=== PATIENT | female | born 1965 | race Caucasian/White ===

== ENCOUNTER 2023-12-15 07:14 | Emergency (ER) | payer BC ==
--- NOTE | 2023-12-15 07:49 | ED Physician Documentation ---
PD HPI NVD - Stated complaint Stated Complaint: N/V/D - Chief complaint Chief Complaint: Abd Pain - History obtained from History obtained from: Patient, Family - History of Present Illness Timing - onset: Yesterday Timing - duration: Days (2) Timing - details: Gradual onset, Still present Associated symptoms: Dizzy, Near syncope / syncope, Other (diarrhea and vomiting.). 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 She has developed nausea vomiting and diarrhea following contact with a granddaughter who was sick with similar at the beginning of the week. The patient has been ill for 2 days and has developed signs and symptoms of dehydration. She indicates that she dehydrates easily. She is here for treatment. Denies any pain, denies any blood in the in the vomit or diarrhea and she denies any fever associated with this. Review of Systems Constitutional: reports: Chills. denies: Fever Ears: denies: Ear pain Nose: denies: Congestion Throat: denies: Sore throat Cardiac: denies: Chest pain / pressure Respiratory: denies: Dyspnea, Cough GI: reports: Nausea, Vomiting, Diarrhea. denies: Abdominal Pain : denies: Dysuria, Frequency Skin: denies: Rash Musculoskeletal: denies: Neck pain, Back pain, Extremity pain Neurologic: denies: Generalized weakness, Focal weakness, Numbness PD PAST MEDICAL HISTORY - Past Medical History Past Medical History: No - Past Surgical History Past Surgical History: Yes Cardiovascular: Other (tumor removal RLL lung October 2023) - Present Medications Home Medications: Ambulatory Orders Medication Instructions Recorded Confirmed Ondansetron Odt [Zofran] 4 mg TL Q6H PRN #10 tablet 12/15/23 - Allergies Allergies/Adverse Reactions: Allergies Allergy/AdvReac Type Severity Reaction Status Date / Time No Known Drug Allergies Allergy Verified 12/15/23 07:20 - Social History Does the pt smoke?: No Smoking Status: Never smoker Does the pt drink ETOH?: No Does the pt have substance abuse?: No - Immunizations Immunizations are current?: Yes - POLST Patient has POLST: No PD ED PE NORMAL - Vitals Vital signs reviewed: Yes (hypsertensive ) - General General: Alert and oriented X 3, No acute distress, Well developed/nourished - HEENT HEENT: Atraumatic, PERRL, EOMI, Other (dry mucous membranes ) - Neck Neck: Supple, no meningeal sign, No bony TTP - Cardiac Cardiac: RRR, No murmur - Respiratory Respiratory: No respiratory distress, Clear bilaterally - Abdomen Abdomen: Normal bowel sounds, Soft, Non tender, Non distended, No organomegaly - Back Back: No CVA TTP, No spinal TTP - Derm Derm: Normal color, Warm and dry, No rash - Extremities Extremities: No deformity, No edema - Neuro Neuro: Alert and oriented X 3, 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, No motor deficit, No sensory deficit, Normal speech Eye Opening: Spontaneous Motor: Obeys Commands Verbal: Oriented GCS Score: 15 - Psych Psych: Normal mood, Normal affect Results - Vitals Vitals: Vital Signs - 24 hr 12/15/23 12/15/23 12/15/23 07:21 09:23 11:37 Temperature 36.5 C 37.0 C 36.8 C Heart Rate 92 82 92 Respiratory 16 18 18 Rate Blood Pressure 130/85 H 145/81 H 145/92 H O2 Saturation 99 100 98 12/15/23 12:00 Temperature Heart Rate 78 Respiratory 18 Rate Blood Pressure 145/92 H O2 Saturation 98 Oxygen O2 Source Room air - Labs Labs: Laboratory Tests 12/15/23 12/15/23 07:36 07:36 WBC 10.4 RBC 4.68 Hgb 14.9 Hct 44.2 MCV 94.4 MCH 31.8 H MCHC 33.7 RDW 12.3 Plt Count 202 MPV 10.4 Neut # (Auto) 9.5 H Lymph # (Auto) 0.5 L [place] # (Auto) 0.3 Eos # (Auto) 0.1 Baso # (Auto) 0.0 Absolute Nucleated RBC 0.00 Nucleated RBC % 0.0 Sodium 136 Potassium 3.7 Chloride 101 Carbon Dioxide 29 Anion Gap 6.0 BUN 17 Creatinine 0.7 Estimated GFR (MDRD) 87 L Glucose 140 H Calcium 9.8 Total Bilirubin 0.7 AST 18 ALT 20 Alkaline Phosphatase 114 Total Protein 7.5 Albumin 4.7 Globulin 2.8 Albumin/Globulin Ratio 1.7 Lipase 16 PD Medical Decision Making - ED course Complexity details: re-evaluated patient, considered differential, d/w patient Reviewed Lab Results: We reviewed a complete blood count showing a normal white blood cell count normal hemoglobin hematocrit and platelets chemistries were with normal electrolytes normal kidney and liver function these laboratories do not contribute to any specific diagnosis and are reassuring for a benign process. ED course: Stephane Wynne tends to dehydrate easily and she presented to the emergency department today after a bout of gastroenteritis provided hydration and antiemetic with improvement. Departure - Departure Disposition: Home, Self Care Clinical Impression: Dehydration, Gastroenteritis Condition: Stable Instructions: ED Dehydration, ED Food Poison Or Gastroenteritis Follow-Up: Your, doctor [Other] Prescriptions: Ondansetron Odt [Zofran] 4 mg TL Q6H PRN #10 tablet PRN Reason: Nausea / Vomiting Comments: Stephane, today it looks like you were significantly dehydrated and we have provided some IV hydration. It also looks like this is likely a viral gastroenteritis and this may take 2 to 5 days to clear up. I have E scribed some Zofran for you to use for nausea to the [facility] in [place]. It is okay to use Imodium available [id number] to treat diarrhea as well. Expectation with our treatment today is feeling better from hydration. The gastroenteritis can persist and if you are not dehydrated again we are here 24 hours a day do not hesitate to come to see us. Forms: PCP List Discharge Date/Time: 12/15/23 12:11
[2023-12-15 07:51] LABS: BASOPHILS % (AUTO) 0.2 %; EOSINOPHILS # (AUTO) 0.1 10^3/uL (0.0-0.7); EOSINOPHILS % (AUTO) 0.6 %; HCT - HEMATOCRIT 44.2 % (37.0-47.0); HGB - HEMOGLOBIN 14.9 g/dL (12.0-16.0); LYMPHOCYTES # (AUTO) 0.5 10^3/uL (1.5-3.5); LYMPHOCYTES % (AUTO) 4.5 %; MEAN CORPUSCULAR HEMOGLOBIN 31.8 pg (27.0-31.0); MEAN CORPUSCULAR HGB CONC 33.7 g/dL (32.0-36.0); MEAN CORPUSCULAR VOLUME 94.4 fL (81.0-99.0); MEAN PLATELET VOLUME 10.4 fL (7.9-10.8); MONOCYTES # (AUTO) 0.3 10^3/uL (0.0-1.0); MONOCYTES % (AUTO) 2.7 %; NEUTROPHILS # (AUTO) 9.5 10^3/uL (1.5-6.6); NEUTROPHILS % (AUTO) 91.6 %; PLT - PLATELET COUNT 202 10^3/uL (130-450); RED BLOOD COUNT 4.68 10^6/uL (4.20-5.40); RED CELL DISTRIBUTION WIDTH 12.3 % (12.0-15.0); WHITE BLOOD COUNT 10.4 x10^3/uL (4.8-10.8)
[2023-12-15] MEDS: ONDANSETRON 4 MG/2 ML VIAL IVP STA ×2 (07:53→10:27)
[2023-12-15] MEDS: SODIUM CHLORIDE 0.9% 1,000 ML IV STA ×2 (07:53→08:46)
[2023-12-15 08:00] LABS: ALBUMIN 4.7 g/dL (3.2-5.5); ALBUMIN/GLOBULIN RATIO 1.7 (1.0-2.2); BILIRUBIN,TOTAL 0.7 mg/dL (0.2-1.0); CALCIUM 9.8 mg/dL (8.5-10.3); CREATININE 0.7 mg/dL (0.6-1.3); POTASSIUM 3.7 mmol/L (3.5-4.5); TOTAL PROTEIN 7.5 g/dL (6.4-8.9)
[2023-12-15 11:40] VITALS: BP 145/92; O2SAT 98
== END 2023-12-15 12:11 | disposition home or self-care (01) ==
LOC: ED 07:14
DX: E86.0 Dehydration (principal); K52.9 Noninfective gastroenteritis and colitis, unspecified
CPT/HCPCS: 36415; 80053; 83690; 85025; 96361; 96374; 96376; 99284